=== PATIENT | female | born 1975 | race African-American/Black ===

== ENCOUNTER 2022-05-31 08:47 | Inpatient (IN) | payer OTHER ==
[~2022-05-31] VITALS: Ht 175.3 cm; Wt 99.8 kg
[2022-05-31] MEDS ORDERED: ZESTRIL10 M1 PO (11:20)
[2022-06-07] MEDS ORDERED: SIMETHICONE80 MG PO (08:56)
[2022-06-07] MEDS ORDERED: PERCOCET 5-3251 EACH PO (08:56)
[2022-06-07] MEDS ORDERED: COLACE100 MG PO (08:56)
== END 2022-06-07 12:06 | disposition home or self-care (01) | DRG 743 ==
LOC: O/R 06-06 06:57 → OB/GYN 06-06 09:15 → SURG 06-06 16:00 → OB/GYN 06-06 20:30 → SURG 06-07 12:06
PROVIDERS: ADMIT Student in an Organized Health Care Education/Training Program; ATTEND Student in an Organized Health Care Education/Training Program
PROC: 0UT74ZZ Resection of Bilateral Fallopian Tubes, Percutaneous Endoscopic Approach (ICD-10-PCS; 2022-06-06)
PROC: 0DNW4ZZ Release Peritoneum, Percutaneous Endoscopic Approach (ICD-10-PCS; 2022-06-06)
PROC: 0TJB8ZZ Inspection of Bladder, Via Natural or Artificial Opening Endoscopic (ICD-10-PCS; 2022-06-06)
PROC: 0UT94ZZ Resection of Uterus, Percutaneous Endoscopic Approach (ICD-10-PCS; principal; 2022-06-06 20:30)
DX: D25.2 Subserosal leiomyoma of uterus (principal); Z20.822 Contact with and (suspected) exposure to COVID-19; N84.0 Polyp of corpus uteri; N72 Inflammatory disease of cervix uteri